=== PATIENT | female | born 1970 | race Two or more races ===

== ENCOUNTER 2022-05-20 23:54 | Emergency (ER) | payer SELFPAY ==
[~2022-05-20] VITALS: Ht 149.9 cm; Wt 68.0 kg
[2022-05-20 23:54] VITALS: BP 138/72
== END 2022-05-21 06:40 | disposition left against medical advice (07) ==
LOC: ER 23:54
DX: R05.9 Cough, unspecified (principal); Z53.21 Procedure and treatment not carried out due to patient leaving prior to being seen by health care provider